=== PATIENT | male | born 1955 | race Caucasian/White ===

== ENCOUNTER 2016-12-11 11:46 | Emergency (ER) | payer OTHER ==
[2016-12-11 12:15] LABS: % IMMATURE GRANULYOCYTES 0.3 % (0.0-1.1); ABSOLUTE IMMATURE GRANULOCYTES 0.02 10^3/uL (0.00-0.10); ADD DIFF? NO; ADD MORPH? NO; ADD SCAN? NO; ATYPICAL LYMPHOCYTE FLAG 0 (0-99); FRAGMENT RBC FLAG 0 (0-99); HEMATOCRIT 42.6 % (40.0-51.0); HEMOGLOBIN 14.8 g/dL (13.7-17.5); LEFT SHIFT FLG 0 (0-99); LIPEMIA HEMOLYSIS FLAG 90 (0-99); MEAN CELL HEMOGLOBIN 32.7 pg (27.9-34.1); MEAN CELL HEMOGLOBIN CONCENTR. 34.7 g/dL (32.4-36.7); MEAN CELL VOLUME 94.2 fL (81.5-99.8); MEAN PLATELET VOLUME 8.6 fL (8.7-11.7); PLATELET CLUMPS FLAG 0 (0-99); PLATELET COUNT 268 10^3/uL (150-400); RED BLOOD CELL COUNT 4.52 10^6/uL (4.40-6.38); RED CELL DISTRIBUTION WIDTH 11.9 % (11.5-15.2)
--- NOTE | 2016-12-11 12:18 | CPEKG ---
Heart Rate: 69 RR Interval: 870 P-R Interval: 172 QRSD Interval: 94 QT Interval: 412 QTC Interval: 442 P [place]: 65 QRS [place]: 39 T Wave [place]: 21 EKG Severity - BORDERLINE ECG - EKG Impression: SINUS RHYTHM EKG Impression: BORDERLINE R WAVE PROGRESSION, ANTERIOR LEADS Electronically Signed By: Julia Melchor 11-Dec-2016 15:43:03
[2016-12-11 12:25] LABS: ANION GAP 15 mEq/L (8-16); CALCIUM 9.7 mg/dL (8.5-10.4); CARBON DIOXIDE 24 mEq/l (22-31); CHLORIDE 103 mEq/L (97-110); GLOMERULAR FILTRATION RATE > 60; GLUCOSE 83 mg/dL (70-100); SODIUM 142 mEq/L (134-144)
[2016-12-11 12:27] LABS: INR 0.97 (0.83-1.16); PROTIME(PATIENT) 12.8 SEC (12.0-15.0)
--- NOTE | 2016-12-11 12:58 | EDPHY ---
HPI/HX/ROS/PE/MDM Narrative: CHIEF COMPLAINT: Possible stroke-like symptoms HISTORY OF PRESENT ILLNESS: This patient is a 61 year old male arriving at the request of his primary care provider, Dr. Tarango for evaluation of stroke-like symptoms. After waking this morning, he was brushing his teeth around 930 and noted he could not spit out his toothpaste well from the right side, and noted possible right-sided facial weakness in the mirror. He visited his primary care provider's office and was noted to have high blood pressure as well, and presents for evaluation. He did have coffee and a banana in the morning without any difficulty swallowing. Of note, he received his flu shot on . He has not had similar symptoms in the past. He denies any trouble with speech or word-finding. No history of hypertension or diabetes. He does not smoke. He has not noted any other neurologic deficits. No fever, chills, chest pain, shortness of breath, palpitations, vomiting, diarrhea, urinary complaints, headache, lightheadedness. REVIEW OF SYSTEMS: Aside from elements discussed in the HPI, a comprehensive 10-point review of systems was reviewed and is negative. PAST MEDICAL HISTORY: Elevated triglycerides. Shoulder pain, Arthritis, Orthopedic surgeries. SOCIAL HISTORY: Nonsmoker. Occasional marijuana use. . Retired. VITAL SIGNS: Reviewed by me GENERAL: Well-developed, well-nourished, resting comfortably in no respiratory distress. HEENT: Atraumatic. Eyes: No icterus, no injection. Mouth: moist mucous membranes. No erythema or lesions. Neck: supple with no adenopathy. LUNGS: Clear to auscultation bilaterally, no wheezes, rhonchi or rales. CARDIAC: Regular rate and rhythm, no rubs, murmurs or gallops. ABDOMEN: Soft, nontender, nondistended, bowel sounds normal. BACK: No CVA tenderness. EXTREMITIES: No trauma. No edema. Range of motion is normal throughout. NEURO: Alert and oriented, cranial nerve exam: Slight weakness noted on the right with elevation of the eye brows. Able to close the right eye with effort. Slight facial droop. EOMIs normal. DORYS. Motor strength 5/5 in all extremities. Sensation intact to light touch throughout, including the face. SKIN: Warm and dry, no rash. PSYCHIATRIC: Normal mentation, no agitation. Portions of this note were transcribed by a medical practice manager. I personally performed a history, physical exam, medical decision making, and confirmed accuracy of information the transcribed note. 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 Patient has had some complaints of discomfort on the right side of his neck posteriorly and into the right shoulder. His PCP had called prior to his arrival to the emergency department did report that he told her he had some numbness in the right shoulder and right side of his neck. 12:[address] Cerda at [facility]. 12:36 CT negative for acute processes. Patient evaluated by Dr. Camarena via the stroke robot. 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 On re-examination, the patient's facial droop is more obvious and he has more difficulty closing his right eye. Plan at this point is to place the patient on high dose steroids, 60 mg daily x1 week. Given the worsening difficulty with eye closing in the more pronounced facial droop, the patient was also placed on valacyclovir 1000 mg three times daily x1 week. Patient will follow up with his primary care physician next week. MDM: Differential diagnoses for the patient's symptom complex was considered including but not limited to stroke, electrolyte abnormality, hypoglycemia, seizure, Trent's palsy, intracranial hemorrhage. - Data Points Imaging Results: Imaging Impressions Head CT 12/11/16 12:05 Impression: 1. No significant intracranial abnormality seen. If symptoms worsen, additional imaging may be necessary. Findings discussed with Julia Melchor MD at 12:35 hour, 12/11/2016. Laboratory Results: Laboratory Results 12/11/16 12:05 12/11/16 12:05 12/11/16 12/11/16 12/11/16 12:05 12:05 12:05 WBC 6.94 10^3/uL 10^3/uL (3.80-9.50) RBC 4.52 10^6/uL 10^6/uL (4.40-6.38) Hgb 14.8 g/dL g/dL (13.7-17.5) POC Hgb Hct 42.6 % % (40.0-51.0) POC Hct MCV 94.2 fL fL (81.5-99.8) MCH 32.7 pg pg (27.9-34.1) MCHC 34.7 g/dL g/dL (32.4-36.7) RDW 11.9 % % (11.5-15.2) Plt Count 268 10^3/uL 10^3/uL (150-400) MPV 8.6 fL L fL (8.7-11.7) Neut % (Auto) 51.0 % % (39.3-74.2) Lymph % (Auto) 35.0 % % (15.0-45.0) Pratt % (Auto) 10.4 % % (4.5-13.0) Eos % (Auto) 2.7 % % (0.6-7.6) Baso % (Auto) 0.6 % % (0.3-1.7) Nucleat RBC Rel Count 0.0 % % (0.0-0.2) Absolute Neuts (auto) 3.54 10^3/uL 10^3/uL (1.70-6.50) Absolute Lymphs (auto) 2.43 10^3/uL 10^3/uL (1.00-3.00) Absolute Monos (auto) 0.72 10^3/uL 10^3/uL (0.30-0.80) Absolute Eos (auto) 0.19 10^3/uL 10^3/uL (0.03-0.40) Absolute Basos (auto) 0.04 10^3/uL 10^3/uL (0.02-0.10) Absolute Nucleated RBC 0.00 10^3/uL 10^3/uL (0-0.01) Immature Gran % 0.3 % % (0.0-1.1) Immature Gran # 0.02 10^3/uL 10^3/uL (0.00-0.10) PT 12.8 SEC SEC (12.0-15.0) INR 0.97 (0.83-1.16) POC Sodium Sodium 142 mEq/L mEq/L (134-144) POC Potassium Potassium 4.0 mEq/L mEq/L (3.5-5.2) POC Chloride Chloride 103 mEq/L mEq/L (97-110) Carbon Dioxide 24 mEq/l mEq/l (22-31) Anion Gap 15 mEq/L mEq/L (8-16) POC BUN BUN 11 mg/dL mg/dL (7-23) Creatinine 1.0 mg/dL mg/dL (0.7-1.3) POC Creatinine Estimated GFR > 60 Glucose 83 mg/dL mg/dL (70-100) POC Glucose Calcium 9.7 mg/dL mg/dL (8.5-10.4) 12/11/16 12:03 WBC RBC Hgb POC Hgb 15.3 gm/dL gm/dL (13.7-17.5) Hct POC Hct 45 % % (40-51) MCV MCH MCHC RDW Plt Count MPV Neut % (Auto) Lymph % (Auto) [place]att % (Auto) Eos % (Auto) Baso % (Auto) Nucleat RBC Rel Count Absolute Neuts (auto) Absolute Lymphs (auto) Absolute Monos (auto) Absolute Eos (auto) Absolute Basos (auto) Absolute Nucleated RBC Immature Gran % Immature Gran # PT INR POC Sodium 142 mEq/L mEq/L (134-144) Sodium POC Potassium 3.8 mEq/L mEq/L (3.3-5.0) Potassium POC Chloride 105 mEq/L mEq/L (97-110) Chloride Carbon Dioxide Anion Gap POC BUN 10 mg/dL mg/dL (7-23) BUN Creatinine POC Creatinine 1.0 mg/dL mg/dL (0.7-1.3) Estimated GFR Glucose POC Glucose 84 mg/dL mg/dL (70-100) Calcium Medications Given: Discontinued Medications Prednisone (Prednisone) 60 mg PO EDNOW ONE Stop: 12/11/16 13:14 Last Admin: 12/11/16 13:20 Dose: 60 mg Valacyclovir HCl (Valtrex) 1,000 mg PO EDNOW ONE Stop: 12/11/16 13:14 Last Admin: 12/11/16 13:59 Dose: 1,000 mg Point of Care Test Results: 12/11/16 12:03 POC Sodium 142 POC Potassium 3.8 POC Chloride 105 POC BUN 10 POC Creatinine 1.0 POC Glucose 84 General Time Seen by Provider: 12/11/16 11:56 Initial Vital Signs: Initial Vital Signs Temperature (C) 36.8 C 12/11/16 11:52 Heart Rate 69 12/11/16 11:52 Respiratory Rate 18 12/11/16 11:52 Blood Pressure 150/99 H 12/11/16 11:52 O2 Sat (%) 95 12/11/16 11:52 O2 Delivery Mode Room Air Allergies/Adverse Reactions: amoxicillin [From Augmentin] Allergy (Verified 12/11/16 11:54) clavulanic acid [From Augmentin] Allergy (Verified 12/11/16 11:54) SEASONAL Allergy (Intermediate, Uncoded 09/17/14 21:32) SINUS CONGESTION Home Medications: Medication Instructions Recorded Vicodin 5-300 mg Tablet 09/17/14 Fenofibrate 12/11/16 Valacyclovir HCl [Valtrex] 1,000 mg PO TID #21 tab 12/11/16 predniSONE 60 mg PO DAILY 7 Days tab 12/11/16 Departure - Departure Disposition: Home, Routine, Self-Care Clinical Impression: Trent's palsy Condition: Good Instructions: Trent Palsy (ED) Additional Instructions: 1. Follow up with your primary care physician next week for continued evaluation. 2. Take Prednisone and Valacyclovir as prescribed. 3. Return for severe headache, worsening or new numbness or weakness, confusion , slurred speech, fever, or other worsening of condition. 4. Please obtain artificial tears, available over the counter to keep your right eye hydrated during the day. Tape your eye shut at night as we discussed. Referrals: Porter Palm MD [Primary Care Provider] - As per Instructions Prescriptions: predniSONE 60 mg PO DAILY 7 Days tab Valacyclovir HCl [Valtrex] 1,000 mg PO TID #21 tab Report Scribed for: Julia Melchor Report Scribed by: Luisa Hernandez Date of Report: 12/11/16 Time of Report: 13:00
[2016-12-11] MEDS ORDERED: valACYclovir 500 MG TAB PO ONE (13:13)
[2016-12-11] MEDS ORDERED: predniSONE 20 MG TAB PO ONE (13:13)
--- NOTE | 2016-12-11 13:17 | PDCONSULT ---
Ssn/Ssbn Assistant Navigator Note: [facility] Note Demographics Consult Type Acute Stroke First Name Gordo Last Name Mega Date of 1955 Age: 61 Gender Male Referring Provider Dr Melchor Time of initial page ([facility] ): 12/11/2016 12:21 Time of return call (): 12/11/2016 12:23 Time Ready to Initiate Telemed Consult (): 12/11/2016 12:25 HPI Additional History (Free Text): 61 year old man who noted weakness of the right face beginning this morning. When he was spitting toothpaste from his mouth he noticed drooling. Self- examination in the mirror showed right facial drooping and inability to close eye normally. There is a ipsilateral headache neck ache on that side there is no change in hearing or taste he denies any symptoms in his limbs. Exam Mental Status: awake, alert + oriented x 3, follows commands Language: normal speech, no aphasia Cranial Nerves extra ocular movements intact, no dysarthria, facial droop right , Face droop with incomplete movement of right forehead and eye closure. Motor: normal strength, normal bulk, no drift Sensory: normal sensation Cerebellar: normal cerebellar NIHSS Time (): 12/11/2016 12:38 LOC 1a: 0 = Alert; keenly responsive LOC 1b: 0 = Answers both questions correctly LOC Commands: 0 = Performs both tasks correctly Best Gaze: 0 = Normal Visual: 0 = No visual loss Facial Palsy 2 = Partial paralysis (total or near-total paralysis of lower face ) Motor Arm L: 0 = No drift; limb holds 90 (or 45) degrees for full 10 seconds Motor Arm R: 0 = No drift; limb holds 90 (or 45) degrees for full 10 seconds Motor Leg L: 0 = No drift; leg holds 30-degree position for full 5 seconds Motor Leg R: 0 = No drift; leg holds 30-degree position for full 5 seconds Limb Ataxia 0 = Absent Sensory: 0 = Normal; no sensory loss Best Language: 0 = No aphasia; normal Dysarthria: 0 = Normal Extinction + Inattention: 0 = No abnormality NIHSS: 2 Impression: Facial palsy (aka "Trent's"). Plan Other I have discussed my recommendations with the referring provider Additional Recommendations: Prednisone 60 mg daily for 5-7 days Disposition discharge home
[2016-12-11 14:05] VITALS: BP 142/97; PULSE 76; RESP 16; TEMP 98.8; O2SAT 94
== END 2016-12-11 14:05 | disposition home or self-care (01) ==
DX: G51.0 Bell's palsy (principal)
CPT/HCPCS: 82947-QW

== ENCOUNTER → 2018-08-18 | Outpatient (CLI) | payer OTHER | LOC: FLAB 14:44 → FIMAGING 14:44 ==